=== PATIENT | male | born 1960 | race Caucasian/White ===

== ENCOUNTER 2022-12-16 11:16 | Outpatient (CLI) | payer OTHER | END 2022-12-16 11:17 | disposition home or self-care (01) | LOC: CSHRAD 11:16 | PROVIDERS: ATTEND Emergency Medicine Emergency Medical Services | DX: R10.9 Unspecified abdominal pain (principal); K76.89 Other specified diseases of liver; N28.1 Cyst of kidney, acquired; K80.20 Calculus of gallbladder without cholecystitis without obstruction; K80.50 Calculus of bile duct without cholangitis or cholecystitis without obstruction | CPT/HCPCS: 74181 ==